=== PATIENT | female | born 1975 | race Hispanic/Latino ===

== ENCOUNTER 2018-01-31 19:33 | Inpatient (IN) | payer MEDICARE ==
[~2018-01-31] VITALS: Ht 170.2 cm; Wt 98.5 kg
[~2018-01-31 19:33] MED LIST: CIPRO500 MG PO; DIFLUCAN100 MG PO; FLAGYL500 MG PO; ULTRAM50 MG PO; ZOFRAN ODT4 MG SL
[2018-01-31] MEDS ORDERED: SODIUM CHLORIDE 0.9% 1000ML 1,000 ML IV ONE (19:45)
[2018-01-31] MEDS ORDERED: ADENOSINE 6 MG/2 ML VIAL IV ONE (19:45)
[2018-01-31] MEDS ORDERED: ASPIRIN 81 MG CHEW TAB PO ONE ×2 (19:45→21:15)
[2018-01-31 20:10] LABS: BASOPHILS # (AUTO) 0.1 (0.0-0.1); BASOPHILS % 1.2 % (0.0-1.0); EOSINOPHILS # (AUTO) 0.1 (0.0-0.4); EOSINOPHILS % 3.2 % (0.0-6.0); HEMATOCRIT 37.6 % (34.2-44.1); HEMOGLOBIN 12.7 g/dL (12.0-16.0); LYMPHOCYTES # (AUTO) 1.7 (1.0-3.2); LYMPHOCYTES % 42.3 % (18.0-39.1); MEAN CORPUSCULAR HEMOGLOBIN 27.9 pg (28-32); MEAN CORPUSCULAR HGB CONC 33.8 g/dL (31-35); MEAN CORPUSCULAR VOLUME 82.5 fL (81-99); MONOCYTES # (AUTO) 0.2 (0.2-0.8); MONOCYTES % 5.7 % (4.4-11.3); NEUTROPHILS # (AUTO) 1.9 (2.1-6.9); NEUTROPHILS % 47.4 % (38.7-80.0); PLATELET COUNT 208 x10e3/uL (140-360); RED BLOOD COUNT 4.56 x10e6/uL (3.6-5.1); RED CELL DISTRIBUTION WIDTH 12.9 % (11.7-14.4)
--- NOTE | 2018-01-31 20:16 | Diagnostic Imaging Report ---
Portable chest x-ray CPT code 28182 INDICATION: Chest pain COMPARISON: None FINDINGS: Frontal view of the chest obtained at 2004 hours. The cardiac silhouette is top normal in size. Multiple EKG wires are present.. The pulmonary vascular marking are normal. The lungs demonstrate low lung volumes without no mass or infiltrate. The costophrenic angles are sharp. There is no pneumothorax. The osseous structures are intact and normal in morphology. IMPRESSION: Low lung volumes. No evidence of vascular congestion or confluent infiltrate. Signed by: Dr. Aleyda Hodge MD on 01/31/2018 8:13 PM
[2018-01-31 20:27] LABS: CREATINE KINASE 71 IU/L (29-168)
[2018-01-31 20:35] LABS: ALANINE AMINOTRANSFERASE 77 IU/L (0-55); ALBUMIN 3.5 g/dL (3.5-5.0); ALKALINE PHOSPHATASE 59 IU/L (40-150); ANION GAP 14.4 mmol/L (8-16); BLOOD UREA NITROGEN 17 mg/dL (7-26); BUN/CREATININE RATIO 19 (6-25); CALCIUM 8.5 mg/dL (8.4-10.2); CARBON DIOXIDE 20 mmol/L (22-29); CHLORIDE 105 mmol/L (98-107); EST GLOMERULAR FILTRATION RATE > 60 ML/MIN (60-); GLUCOSE 205 mg/dL (74-118); MAGNESIUM 1.9 MG/DL (1.3-2.1); POTASSIUM 3.4 mmol/L (3.5-5.1); SODIUM 136 mmol/L (136-145)
[2018-01-31 20:54] LABS: THYROID STIMULATING HORMONE 1.153 uIU/mL (0.350-4.940)
[2018-01-31 21:01] LABS: INR 1.1; PROTHROMBIN TIME 13.4 seconds (11.9-14.5)
[2018-01-31 21:02] LABS: PARTIAL THROMBOPLASTIN TIME 25.7 seconds (23.8-35.5)
[2018-01-31] MEDS ORDERED: ONDANSETRON HCL INJ 2 MG/ML VIAL IV PRN (21:15)
[2018-01-31] MEDS ORDERED: METOPROLOL TARTRATE 25 MG TAB PO ONE (21:15)
[2018-01-31 21:32] LABS: BILIRUBIN,URINE NEGATIVE (NEGATIVE); CLARITY,URINE CLEAR (CLEAR); COLOR,URINE YELLOW (YELLOW); KETONES,URINE NEGATIVE (NEGATIVE); LEUKOCYTE ESTERASE ,URINE NEGATIVE (NEGATIVE); NITRITE,URINE NEGATIVE (NEGATIVE); PROTEIN,URINE DIPSTICK NEGATIVE (NEGATIVE); URINE UROBILINOGEN 0.2 mg/dL (0.2 - 1)
[2018-01-31 21:41] LABS: BACTERIA,URINE RARE /HPF; EPITHELIAL CELLS,URINE FEW /LPF; RBC,URINE 0-5 /HPF (0-5)
[2018-01-31 21:42] LABS: HYALINE CASTS 0-1 (0-1)
--- OUTSIDE RECORDS SUMMARY | 2018-01-31 21:56 | XMS REPORT ---
Author Author [facility] Address Unknown Phone Unavailable Care Team Providers Care Slipcover Cutter Name Role Phone JOSEF LENZ Unavailable Unavailable Problems This patient has no known problems. Allergies, Adverse Reactions, Alerts This patient has no known allergies or adverse reactions. Medications This patient has no known medications. Results Test Description Test Time Test Comments Text Results Atomic Results Result Comments CHEST SINGLE (PORTABLE) [place] [address] Patient Name: DIGNA JACOBS MR #: [id number] : 1975 Age/Sex: 42/F Req #: [id number] Adm Physician: Ordered by: ARIANNA PALMA NP Report #: [id number] Location: ER Room/Bed: Procedure: [id number] DX/CHEST SINGLE (PORTABLE) Exam Date: 01/31/18 Exam Time: 1954 REPORT STATUS: Signed Portable chest x -ray CPT code 23722 INDICATION: Chest pain COMPARISON: None FINDINGS: Frontal view of the chest obtained at 2004 hours. The cardiac silhouette is top normal in size. Multiple EKG wires are present.. The pulmonary vascular marking are normal. The lungs demonstrate low lung volumes without no mass or infiltrate. The costophrenic angles are sharp. There is no pneumothorax. The osseous structures are intact and normal in morphology. IMPRESSION: Low lung volumes. No evidence of vascular congestion or confluent infiltrate. Signed by: Dr. Perry Hodge MD on 01/31/2018 8:13 PM Dictated By: PERRY HODGE MD 12 Transcribed By: RHONDA on 04/14 COPY TO: ARIANNA PALMA NP
[2018-01-31 22:19] LABS: CHOL/HDL RATIO 2.9 (3.0-3.6)
[2018-01-31] MEDS ORDERED: ADDERALL 30 MG30 MG PO (22:36)
[2018-01-31] MEDS ORDERED: CYMBALTA20 MG PO (22:36)
[2018-01-31] MEDS: FAMOTIDINE 20 MG TAB PO SCH (22:37)
[2018-02-01] VITALS (7 sets, daily range): BP systolic 122–145; BP diastolic 60–83
--- NOTE | 2018-02-01 00:46 | Consultation ---
DATE OF CONSULTATION: January 31, 2018 CARDIOLOGY CONSULTATION REASON FOR CONSULTATION: Supraventricular tachycardia. CLINICAL HISTORY: Ms. Palacios is a healthy 42-year-old female without any medical problems, who comes in with 2 hours of chest pain and palpitations. She was found to be in narrow complex tachycardia. In the emergency room, she was given intravenous adenosine with conversion to sinus rhythm. Her subsequent EKG showed some ST depression, which she is currently in normal sinus rhythm without any symptoms and without ST changes. Similar history of prior brief palpitations related to anxiety. No admission to the hospital for any cardiac-related problems. PAST MEDICAL HISTORY: None. SOCIAL HISTORY: Patient does not smoke or drink. She is accompanied by her . FAMILY HISTORY: Noncontributory. REVIEW OF SYSTEMS: Negative except as dictated in the history present illness. PHYSICAL EXAMINATION VITALS: Afebrile. Heart rate 95. Blood pressure 148/70. LUNGS: Clear to auscultation bilaterally. CARDIOVASCULAR: Regular rhythm. No murmurs or gallops. ABDOMEN: Soft. Bowel sounds adequately. EKG/LABS: Chest x reviewed. ASSESSMENT: Supraventricular tachycardia. RECOMMENDATIONS: Successful conversion to sinus rhythm with intravenous adenosine. Beta-blockers and aspirin will be started. An echocardiogram will be obtained. Liver enzymes will be repeated. Patient should be observed on telemetry overnight. I thank, Dr. Key, for this consultation. Job#: [id number] CQ
[2018-02-01] MEDS: ACETAMINOPHEN 325 MG TAB PO PRN (03:25)
[2018-02-01 07:20] LABS: BASOPHILS % 0.8 % (0.0-1.0); EOSINOPHILS # (AUTO) 0.1 (0.0-0.4); EOSINOPHILS % 2.5 % (0.0-6.0); HEMATOCRIT 34.9 % (34.2-44.1); HEMOGLOBIN 11.8 g/dL (12.0-16.0); LYMPHOCYTES # (AUTO) 1.3 (1.0-3.2); LYMPHOCYTES % 27.8 % (18.0-39.1); MEAN CORPUSCULAR HEMOGLOBIN 28.2 pg (28-32); MEAN CORPUSCULAR HGB CONC 33.8 g/dL (31-35); MEAN CORPUSCULAR VOLUME 83.5 fL (81-99); MONOCYTES # (AUTO) 0.5 (0.2-0.8); NEUTROPHILS # (AUTO) 2.8 (2.1-6.9); NEUTROPHILS % 58.7 % (38.7-80.0); PLATELET COUNT 145 x10e3/uL (140-360); RED BLOOD COUNT 4.18 x10e6/uL (3.6-5.1)
[2018-02-01 07:49] LABS: ALANINE AMINOTRANSFERASE 63 IU/L (0-55); ALBUMIN 3.2 g/dL (3.5-5.0); ALKALINE PHOSPHATASE 52 IU/L (40-150); ANION GAP 9.7 mmol/L (8-16); BLOOD UREA NITROGEN 10 mg/dL (7-26); BUN/CREATININE RATIO 16 (6-25); CALCIUM 8.2 mg/dL (8.4-10.2); CARBON DIOXIDE 27 mmol/L (22-29); CHLORIDE 107 mmol/L (98-107); CHOL/HDL RATIO 2.9 (3.0-3.6); CHOLESTEROL 168 MD/DL (0-199); CREATININE, SERUM 0.64 mg/dL (0.57-1.11); EST GLOMERULAR FILTRATION RATE > 60 ML/MIN (60-); GLUCOSE 105 mg/dL (74-118); HDL CHOLESTEROL 58 MG/DL (40-60); LDL CHOLESTEROL 89 MG/DL (60-130); POTASSIUM 3.7 mmol/L (3.5-5.1); SODIUM 140 mmol/L (136-145); TRIGLYCERIDES 106 MG/DL (0-149)
[2018-02-01 08:10] LABS: CREATINE KINASE MB 71.3 ng/mL (0-5.0)
[2018-02-01] MEDS: METOPROLOL TARTRATE 25 MG TAB PO SCH ×2 (09:07→18:07)
[2018-02-01] MEDS: ASPIRIN 81 MG ENTERIC COATED PO SCH (09:07)
[2018-02-01] MEDS: FAMOTIDINE 20 MG TAB PO SCH ×2 (09:08→21:16)
[2018-02-01] MEDS ORDERED: ENOXAPARIN SOD INJ 60 MG/0.6 ML SYR SC SCH (13:00)
--- NOTE | 2018-02-01 13:09 | Progress Note ---
DATE: CARDIOLOGY PROGRESS NOTE SUBJECTIVE: The patient reports some shortness of breath that is worsened with exertion. Denies any obvious chest pain. Denies any palpitations. OBJECTIVE VITAL SIGNS: Temperature 96.6, pulse 73, respiratory rate 18, blood pressure 122/75, oxygen saturation 98% on 3 L nasal cannula. CARDIOVASCULAR MEDICATIONS 1. Aspirin 81 mg p.o. daily. 2. Metoprolol 25 p.o. b.i.d. LABS: WBC 4.79, hemoglobin 11.8, hematocrit 34.9, platelets 145. Sodium 140, potassium 3.7, BUN 10, creatinine 0.64, glucose 105, calcium 8.2. AST 88 and ALT 63. Creatine kinase 569, CK-MB 71.30, troponin 10.307. Triglycerides 106, cholesterol 158, LDL 89, HDL 58. TELEMETRY: Sinus rhythm. GENERAL: Alert and oriented times 3. Resting comfortably in bed. Does not appear to be in any acute distress. LUNGS: Clear to auscultation throughout. No wheezing, rhonchi or crackles. CARDIOVASCULAR: Regular rate and rhythm. No murmurs. No gallops. ABDOMEN: Soft and nontender. LOWER EXTREMITIES: Two-plus pedal pulses. No edema. ASSESSMENT 1. Supraventricular tachycardia status post successful cardiovascular with adenosine. 2. Usq-NA-rnexqzypq myocardial infarction. RECOMMENDATION: Plan for coronary angiogram in parking lot signaler tomorrow. Medications have been adjusted. Lovenox, aspirin, statin and beta nelida. Echocardiogram ordered and will be obtained. Maintain on telemetry at all times. Serial cardiac enzymes. Dictated by: Crystal Odell NP Job#: [id number]
[2018-02-01] MEDS ORDERED: POLYETHYLENE GLYCOL 3350 17 GM PACK PO ONE (13:15)
[2018-02-01 15:23] LABS: CREATINE KINASE MB 47.9 ng/mL (0-5.0)
--- NOTE | 2018-02-01 19:27 | History and Physical ---
PRIMARY CARE PROVIDER: Dr. Yao Amezquita. CHIEF COMPLAINT: Chest pain and palpitations. HISTORY OF PRESENT ILLNESS: Ms. Palacios is a 42-year-old lady who presented with sudden onset of chest pain and palpitations yesterday. On presentation to the ER, she was found to be in SVT with a rate of 177. REVIEW OF SYSTEMS: She denies fever, chills, or weight loss. She denies sinus congestion or sore throat. She has had chest pain and palpitations as noted. She denies diaphoresis. She denies shortness of breath, wheezing, or cough. She denies abdominal pain, nausea, vomiting, or melena. She denied dysuria or flank pain. She denied rash or pruritus. She denied joint pain or swelling. She denied headache, vertigo, or loss of consciousness. She denied bleeding or bruising. She denied depression, agitation, homicide, or suicidal ideation. PAST MEDICAL HISTORY: Significant for ADD, for which she takes Adderall 30 mg twice daily. She also takes Cymbalta 20 mg twice daily for depression. She has a distant history of . No other surgery. She denies any history of diabetes or hypertension. ALLERGIES: SHE HAS NO KNOWN DRUG ALLERGIES. FAMILY HISTORY: Unremarkable. SOCIAL HISTORY: The patient is , here with her . She is , but Serbian is her primary language. She does not smoke, drink, or use illegal drugs and she is generally independently functioning. PHYSICAL EXAMINATION: PSYCHIATRIC: She is awake, alert, and oriented times 3 with normal mood and affect. CONSTITUTIONAL: She has a normal body habitus, is in no acute distress. VITAL SIGNS: Blood pressure currently 122/75, was initially 95/63 on presentation. Pulse rate 73 and regular sinus rhythm currently, pulse rate was 177 and SVT initially. Respiratory rate is 18, O2 sat 98% on room air, and temperature 96.6. HEENT: Her head is atraumatic. Her eyes are anicteric with clear conjunctivae. Ears and nares are without erythema or discharge. Her oropharynx is clear. NECK: Supple. No mass or thyromegaly. LYMPHATIC: She has no palpable cervical, axillary, or inguinal adenopathy. CARDIOVASCULAR: Her heart has a regular rate rhythm without murmur or extra sounds. She has no carotid bruits. She has no peripheral edema. She has palpable dorsal pedal pulses. RESPIRATORY: Clear to auscultation percussion with normal respiratory effort. GASTROINTESTINAL: Her abdomen is soft without organomegaly, masses, or tenderness. She has normal bowel sounds present. CUTANEOUS: Her skin is warm and dry to touch with no rash or skin breakdown. MUSCULOSKELETAL: Her joints are normal alignment without erythema or swelling. She has no calf tenderness. NEUROLOGIC: Exam is nonfocal with intact cranial nerves and no motor or sensory deficits. DIAGNOSTIC STUDIES: Chest x-ray shows low lung volumes, but otherwise no acute disease. Her first EKG shows SVT at a rate of [address] changes consistent with injury. Her second EKG showed normal sinus rhythm with ST elevation in the inferolateral leads suggesting a STEMI. Her third EKG showed normal sinus rhythm with only nonspecific ST changes, nothing look like acute ischemia. Her echocardiogram showed an ejection fraction of 65-70% without any wall motion abnormalities and she did have some concentric left ventricular hypertrophy. Her cardiac enzymes initially 0.067, then 10.307, and 4.965, both positive for non-STEMI. Her TSH 1.153. Magnesium 1.9, cholesterol 186, LDL 94, HDL 64. Her chemistry showed normal electrolytes, CO2 of 20, creatinine 0.90, BUN 17 for a normal GFR, glucose 205, calcium is 8.4. After hydration overnight, electrolytes are normal, CO2 of 27, creatinine 0.64, BUN 10, calcium 8.2, glucose 105. Her transaminases are slightly elevated with an AST of 102 and ALT of 77. Alk phos and bilirubin are both normal. Her CBC shows a white count of 4.79 with a normal differential, hemoglobin 11.8, hematocrit 34.9, and platelet count 145,000. Coags are normal. IMPRESSION AND PLAN 1. Supraventricular tachycardia. The patient converted to sinus rhythm with intravenous adenosine in the emergency department. The patient was then started on metoprolol 25 mg twice daily. 2. Acute non-ST elevation myocardial infarction related to the chest pain. The patient has been started on aspirin, metoprolol, Lipitor, and cardiology has been consulted. The cardiology is planning a left heart cath in the morning. The patient's lipid profile and thyroids have been checked. We will also check her A1c level in view the initial elevated blood sugar. 3. For prophylaxis, the patient is on Lovenox for deep venous thrombosis prophylaxis and Pepcid for gastrointestinal prophylaxis. Note: 60 minutes spent on H and P. Job#: [id number] PAT
[2018-02-01] MEDS ORDERED: ATORVASTATIN 20 MG TAB PO SCH (21:00)
[2018-02-02] VITALS: BP 138/68
[2018-02-02] MEDS ORDERED: ENOXAPARIN SOD INJ 60 MG/0.6 ML SYR SC SCH (01:00)
[2018-02-02 04:00] VITALS: BP 146/63
[2018-02-02] MEDS ORDERED: HEPARIN SOD/SOD CHLORIDE 2,000 ML ONE (07:29)
[2018-02-02] MEDS ORDERED: LIDOCAINE HCL 2% LOCAL 20 ML VIAL ONE (07:29)
[2018-02-02 07:56] LABS: BASOPHILS % 0.9 % (0.0-1.0); EOSINOPHILS # (AUTO) 0.2 (0.0-0.4); HEMATOCRIT 35.3 % (34.2-44.1); HEMOGLOBIN 11.8 g/dL (12.0-16.0); LYMPHOCYTES # (AUTO) 1.1 (1.0-3.2); LYMPHOCYTES % 32.9 % (18.0-39.1); MEAN CORPUSCULAR HEMOGLOBIN 28.1 pg (28-32); MEAN CORPUSCULAR HGB CONC 33.4 g/dL (31-35); MONOCYTES # (AUTO) 0.4 (0.2-0.8); MONOCYTES % 11.5 % (4.4-11.3); NEUTROPHILS # (AUTO) 1.7 (2.1-6.9); NEUTROPHILS % 49.7 % (38.7-80.0); PLATELET COUNT 150 x10e3/uL (140-360); RED CELL DISTRIBUTION WIDTH 12.9 % (11.7-14.4)
[2018-02-02] MEDS ORDERED: HEPARIN SOD (PORCINE) 1000 UNIT/ML 30ML ONE (07:59)
[2018-02-02] MEDS ORDERED: MIDAZOLAM HCL 2 MG/2 ML VIAL ONE ×2 (07:59→08:35)
[2018-02-02] MEDS ORDERED: BIVALIRUDIN 250 MG/VIAL IV ONE (07:59)
[2018-02-02 08:00] VITALS: BP 158/74
[2018-02-02] MEDS ORDERED: SODIUM CHLORIDE 0.9% 1000ML 1,000 ML ONE (08:00)
[2018-02-02] MEDS ORDERED: FENTANYL CITRATE/PF 100MCG/2 ML INJ ONE (08:00)
[2018-02-02] MEDS ORDERED: SODIUM CHLORIDE 0.9% 50ML 0 ML ONE (08:00)
[2018-02-02] MEDS ORDERED: NITROGLYCERIN/D5W 200 MCG/ML 250 ML ONE (08:01)
[2018-02-02] MEDS ORDERED: VERAPAMIL HCL 2.5 MG/ML 2 ML VIAL ONE (08:01)
[2018-02-02 08:10] LABS: ANION GAP 10.3 mmol/L (8-16); BLOOD UREA NITROGEN 14 mg/dL (7-26); BUN/CREATININE RATIO 20 (6-25); CALCIUM 8.1 mg/dL (8.4-10.2); CARBON DIOXIDE 26 mmol/L (22-29); CHLORIDE 105 mmol/L (98-107); CREATININE, SERUM 0.69 mg/dL (0.57-1.11); EST GLOMERULAR FILTRATION RATE > 60 ML/MIN (60-); GLUCOSE 117 mg/dL (74-118); MAGNESIUM 1.8 MG/DL (1.3-2.1); POTASSIUM 3.3 mmol/L (3.5-5.1); SODIUM 138 mmol/L (136-145)
[2018-02-02] MEDS ORDERED: IOPAMIDOL 370 MG/ML 200 ML INFUS..BTL INJ ONE (08:18)
[2018-02-02] MEDS: FAMOTIDINE 20 MG TAB PO SCH (08:21)
[2018-02-02] MEDS: ASPIRIN 81 MG ENTERIC COATED PO SCH (08:21)
[2018-02-02] MEDS: METOPROLOL TARTRATE 25 MG TAB PO SCH ×2 (08:21→10:27)
[2018-02-02 09:33] VITALS: BP 148/70
[2018-02-02] MEDS ORDERED: LIPITOR20 MG PO (09:38)
[2018-02-02] MEDS ORDERED: ASPIRIN EC81 MG PO (09:38)
[2018-02-02] MEDS ORDERED: METOPROLOL SUCC25 MG PO (09:38)
[2018-02-02] MEDS ORDERED: CARDIZEM CD180 MG PO (09:38)
[2018-02-02] MEDS ORDERED: POTASSIUM CHLORIDE 20 MEQ TAB CR PO STA (09:40)
[2018-02-02] MEDS ORDERED: OS-CAL 500+D T1 EACH PO (09:46)
[2018-02-02 09:51] VITALS: BP 148/70
[2018-02-02] MEDS: ACETAMINOPHEN 325 MG TAB PO PRN (10:19)
--- NOTE | 2018-02-02 11:15 | Operative Report ---
DATE OF PROCEDURE: February 02, 2018 INDICATIONS: Bds-MT-fdfzcqq-elevation myocardial infarction. PROCEDURES PERFORMED 1. Left heart catheterization, selective coronary angiography. 2. Deployment of right groin Perclose closure device. COMPLICATIONS: None. RECOMMENDATIONS: Aggressive medical therapy for coronary spasm. Access was obtained in the right femoral artery. A 6-Arabic sheath was placed. Diagnostic coronary angiogram revealed nondominant right coronary artery. No angiographic coronary artery disease in all coronary vessels. However, severe left main coronary spasm was noted with considerable dampening of the pressure in the left coronary catheter. The patient was administered 250 mcg of intracoronary nitroglycerin with complete resolution of the spasm. LV end-diastolic pressure of 8. No gradient across the aortic valve on pull back. Right groin repaired using Perclose. Patient discharged home the same day. JAISON CHADWICK MD Job#: [id number]
[2018-02-02 12:15] VITALS: BP 156/64
--- NOTE | 2018-02-02 16:26 | Discharge Summary ---
ADMISSION DIAGNOSES 1. Supraventricular tachycardia. 2. Acute non-ST elevation myocardial infarction. DISCHARGE DIAGNOSES 1. Supraventricular tachycardia. 2. Acute non-ST elevation myocardial infarction. 3. Hypokalemia. HISTORY: Patient has a history of ADD, depression, surgical history of . HOSPITAL COURSE: A 42-year-old female presented with sudden onset of chest pain and palpitations prior to discharge. On presentation to the ER, she was found to be in SVT with a rate of 177. Patient converted to sinus rhythm with IV adenosine in the ER. She was then started on metoprolol b.i.d. Cardio was consulted. Patient was also started on aspirin, Lipitor, and Cardizem. Patient had an EKG that showed normal sinus, ST elevation, and echo showed an EF of 65-70% with mild MR and TR. Patient had a heart cath on February 02, 2018 with no interventions. Per cardiology, the patient was just having a troponin leak and spasm. Chest x-ray on admission showed no congestion or infiltrate. Troponin was negative on admission and then on February 01, the troponin was 10.307 and then later in that evening, the troponin was 4.965. Patient remained stable after the cardiac cath. Patient was sent home after her bedrest was over. Cardiology said okay to go home on aspirin, Lipitor, Cardizem, and metoprolol. She will follow up with them as discussed. Vital signs stable, afebrile. Patient's sodium was 138, potassium 3.3, which was repleted prior to discharge and calcium 8.1. Patient was sent home on [place]. WBC of 3.4 with a hemoglobin of 11.8. UA was negative. Patient no longer having chest pain and ready to go home with family. DICTATED BY: Sherice Royal NP JOEL ESTEVES MD Job#: [id number] VAS
== END 2018-02-02 12:15 | disposition home or self-care (01) | DRG 281 ==
LOC: ER 19:33 → MERGE 21:12 → ERHOLD 21:12 → IMCU 22:19 → MED/SURG 02-02 08:46
PROVIDERS: ADMIT Internal Medicine; ATTEND Internal Medicine
PROC: 3E033RZ Introduction of Antiarrhythmic into Peripheral Vein, Percutaneous Approach (ICD-10-PCS; principal; 2018-01-31)
PROC: B2151ZZ Fluoroscopy of Left Heart using Low Osmolar Contrast (ICD-10-PCS; 2018-02-02)
PROC: B2111ZZ Fluoroscopy of Multiple Coronary Arteries using Low Osmolar Contrast (ICD-10-PCS; 2018-02-02)
PROC: 4A023N7 Measurement of Cardiac Sampling and Pressure, Left Heart, Percutaneous Approach (ICD-10-PCS; 2018-02-02)
DX: I21.4 Non-ST elevation (NSTEMI) myocardial infarction (principal); I47.1 Supraventricular tachycardia; I08.1 Rheumatic disorders of both mitral and tricuspid valves; E87.6 Hypokalemia; F98.8 Other specified behavioral and emotional disorders with onset usually occurring in childhood and adolescence; F32.9 Major depressive disorder, single episode, unspecified
CPT/HCPCS: 36140; 36415; 71045; 77002; 80048; 80053; 80061; 81001; 82550; 82553; 83036; 83735; 84443; 84484; 84702; 85025; 85610; 85730; 93005; 93306; 93458; 99284; C1769; J0153; J0583; J1644; J1650; J2001; J2250; J7030; Q9967